=== PATIENT | male | born 1930 | race Two or more races ===

== ENCOUNTER 2016-10-25 22:19 | Emergency (ER) | payer MEDICARE ==
[~2016-10-25] VITALS: Ht 175.3 cm; Wt 84.0 kg
[2016-10-26] MEDS ORDERED: MORPHINE SULFATE 4 MG/ML CPJ (NOT FOR IM USE) IV STA (00:08)
[2016-10-26] MEDS ORDERED: ONDANSETRON HCL 4MG/2ML VIAL IV STA (00:08)
[2016-10-26 00:47] LABS: BASOPHILS % 0.1 % (0.0-2.0); HEMATOCRIT. 38.5 % (42.0-52.0); HEMOGLOBIN. 13.2 g/dL (14.0-18.0); LYMPHOCYTES % 8.6 % (20.0-50.0); MEAN CORPUSCULAR HEMOGLOBIN 32.5 pg (28.0-32.0); MEAN CORPUSCULAR VOLUME 94.6 fL (80.0-94.0); MEAN PLATELET VOLUME 7.3 fl (7.4-10.4); MONOCYTES % 7.8 % (2.0-8.0); NEUTROPHILS % 83.5 % (40.0-76.0); PLATELET 211 x1000/uL (130-400); RED BLOOD CELL COUNT 4.06 mill/uL (4.7-6.1); RED CELL DISTRIBUTION WIDTH 13.6 % (11.6-14.6)
[2016-10-26 00:56] LABS: PARTIAL THROMBOPLASTIN TIME 29.1 sec (24.0-34.0); PROTHROMBIN TIME 10.3 sec
[2016-10-26 01:10] LABS: CARBON DIOXIDE 24 mEq/L (21-32); CHLORIDE 104 mEq/L (98-107); CREATINE KINASE 194 IU/L (39-308); TROPONIN I < 0.02 ng/mL (0.00-0.04)
[2016-10-26 01:13] LABS: CLARITY URINE CLEAR (CLEAR); COLOR URINE YELLOW (YELLOW); GLUCOSE URINE NEGATIVE (NEGATIVE); KETONES URINE NEGATIVE (NEGATIVE); LEUKOCYTE ESTERASE URINE NEGATIVE (NEGATIVE); NITRITE URINE NEGATIVE (NEGATIVE); OCCULT BLOOD URINE TRACE (NEGATIVE); PROTEIN URINE TRACE (NEGATIVE); SPECIFIC GRAVITY URINE 1.008 (1.005-1.030); UROBILINOGEN URINE 0.2 E.U./dL (0.2-1.0)
[2016-10-26 03:40] VITALS: BP 155/66
== END 2016-10-26 03:47 | disposition home or self-care (01) ==
LOC: ER 22:43
DX: R55 Syncope and collapse (principal); M54.2 Cervicalgia; I10 Essential (primary) hypertension
CPT/HCPCS: 36415; 70450; 71010; 72125; 73030; 80053; 81001; 82550; 84484; 85025; 85610; 85730; 86850; 86900; 86901; 93005; 96374; 96375; 99291; J2270; J2405

== ENCOUNTER 2018-03-26 19:15 | Inpatient (IN) | payer MEDICARE ==
[~2018-03-26] VITALS: Ht 177.8 cm; Wt 70.8 kg
[2018-03-26 20:53] LABS: HEMATOCRIT. 28.1 % (42.0-52.0); HEMOGLOBIN. 9.3 g/dL (14.0-18.0); MEAN CORPUSCULAR HEMOGLOBIN 27.5 pg (28.0-32.0); MEAN CORPUSCULAR VOLUME 82.9 fL (80.0-94.0); MEAN PLATELET VOLUME 6.8 fl (7.4-10.4); PLATELET 247 x1000/uL (130-400); RED CELL DISTRIBUTION WIDTH 15.2 % (11.6-14.6)
[2018-03-26 21:05] LABS: CHLORIDE 107 mEq/L (98-107)
[2018-03-26 21:19] LABS: PLATELET ESTIMATE NORMAL
[2018-03-26 22:30] VITALS: BP 144/56
[2018-03-26] MEDS ORDERED: ACETAMINOPHEN 325MG TABLET PO PRN (23:15)
[2018-03-27 04:00] VITALS: BP 113/47
[2018-03-27 07:27] LABS: BASOPHILS % 0.1 % (0.0-2.0); HEMATOCRIT. 24.9 % (42.0-52.0); HEMOGLOBIN. 8.3 g/dL (14.0-18.0); LYMPHOCYTES % 14.5 % (20.0-50.0); MEAN CORPUSCULAR HEMOGLOBIN 27.6 pg (28.0-32.0); MEAN CORPUSCULAR VOLUME 82.8 fL (80.0-94.0); MEAN PLATELET VOLUME 7.2 fl (7.4-10.4); MONOCYTES % 14.4 % (2.0-8.0); PLATELET 222 x1000/uL (130-400); RED BLOOD CELL COUNT 3.01 mill/uL (4.7-6.1); RED CELL DISTRIBUTION WIDTH 15.2 % (11.6-14.6)
[2018-03-27 08:00] VITALS: BP 138/55
[2018-03-27 08:01] LABS: CHLORIDE 109 mEq/L (98-107)
[2018-03-27] MEDS: ENOXAPARIN 40MG/0.4ML SYR SUBCUT SCH (08:12)
[2018-03-27 08:14] LABS: CREATINE KINASE 187 IU/L (39-308); CREATINE KINASE MB FRACTION 1.2 ng/mL (0.5-3.6)
[2018-03-27 10:00] VITALS: BP 129/75
[2018-03-27 12:00] VITALS: BP 128/70
[2018-03-27] MEDS ORDERED: LEVOFLOXACIN 500MG TABLET PO ONE (12:30)
[2018-03-27] MEDS: POTASSIUM CHLORIDE 10MEQ TABLET SR PO SCH (12:39)
[2018-03-27] MEDS: ASPIRIN 81MG TABLET PO SCH (12:39)
[2018-03-27] MEDS: FUROSEMIDE 40MG/4ML VIAL IVP SCH (12:39)
[2018-03-27] MEDS: LEVOFLOXACIN 500MG TABLET PO SCH (12:41)
[2018-03-27 15:57] LABS: CREATINE KINASE MB FRACTION 1.6 ng/mL (0.5-3.6)
[2018-03-27 16:00] VITALS: BP 116/77
[2018-03-27] MEDS: TAMSULOSIN HCL 0.4MG SR CAPSULE PO SCH (18:03)
[2018-03-27] MEDS ORDERED: FURO-152 MT (18:24)
[2018-03-27] MEDS ORDERED: SIMV20TA6 MT (18:24)
[2018-03-27] MEDS ORDERED: ATEN-42 MT (18:24)
[2018-03-27] MEDS ORDERED: AMLO10TA80 MT (18:24)
[2018-03-27] MEDS ORDERED: LOSA100T14 MT (18:24)
[2018-03-27] MEDS ORDERED: POTA20TA82 MT (18:24)
[2018-03-27] MEDS ORDERED: CLOP75TA33 MT (18:24)
[2018-03-27] MEDS ORDERED: FINA5TAB11 MT (18:24)
[2018-03-27] MEDS ORDERED: GLIM1TAB2 MT (18:24)
[2018-03-27] MEDS ORDERED: METF500T MT (18:24)
[2018-03-27 20:00] VITALS: BP_SYST 131; BP_SYST 136; BP_SYST 141; BP_DIAS 48; BP_DIAS 75; BP_DIAS 81
[2018-03-27] MEDS: ALBUTEROL (0.083%) 2.5MG/3ML NEB HHN SCH (20:09)
[2018-03-28] VITALS: BP 127/55
[2018-03-28] MEDS: ALBUTEROL (0.083%) 2.5MG/3ML NEB HHN SCH ×2 (01:30→08:51)
[2018-03-28 04:00] VITALS: BP 131/43
[2018-03-28 06:50] LABS: BASOPHILS % 0.3 % (0.0-2.0); HEMATOCRIT. 26.6 % (42.0-52.0); HEMOGLOBIN. 8.7 g/dL (14.0-18.0); LYMPHOCYTES % 15.1 % (20.0-50.0); MEAN CORPUSCULAR HEMOGLOBIN 27.4 pg (28.0-32.0); MEAN CORPUSCULAR VOLUME 83.4 fL (80.0-94.0); MEAN PLATELET VOLUME 7.1 fl (7.4-10.4); MONOCYTES % 14.7 % (2.0-8.0); NEUTROPHILS % 69.9 % (40.0-76.0); PLATELET 225 x1000/uL (130-400); RED BLOOD CELL COUNT 3.19 mill/uL (4.7-6.1); RED CELL DISTRIBUTION WIDTH 15.4 % (11.6-14.6)
[2018-03-28 07:05] LABS: CHLORIDE 108 mEq/L (98-107)
[2018-03-28 07:16] LABS: HDL CHOLESTEROL 51 mg/dL (40-59); LDL CHOLESTEROL 51 mg/dL (5-100)
[2018-03-28 08:00] VITALS: BP_SYST 107; BP_SYST 120; BP_SYST 135; BP_DIAS 36; BP_DIAS 43; BP_DIAS 79
[2018-03-28] MEDS: ASPIRIN 81MG TABLET PO SCH (09:46)
[2018-03-28] MEDS: POTASSIUM CHLORIDE 10MEQ TABLET SR PO SCH (09:46)
[2018-03-28] MEDS: FUROSEMIDE 40MG/4ML VIAL IVP SCH (09:46)
[2018-03-28] MEDS: ENOXAPARIN 40MG/0.4ML SYR SUBCUT SCH (09:47)
[2018-03-28] MEDS: TAMSULOSIN HCL 0.4MG SR CAPSULE PO SCH (09:47)
[2018-03-28] MEDS: LEVOFLOXACIN 500MG TABLET PO SCH (11:51)
[2018-03-28 12:00] VITALS: BP 104/53
[2018-03-28 15:33] VITALS: BP 127/59
[2018-03-28 15:39] VITALS: BP 127/59
== END 2018-03-28 17:25 | disposition home or self-care (01) | DRG 293 ==
LOC: ER 19:15 → 8WST 20:23 → EDBEDREQTM 20:26 → EDBEDREQ 20:26 → EDBEDREQTM 20:44 → ENRESERV 20:50
PROVIDERS: ADMIT Internal Medicine; ATTEND Internal Medicine
DX: I11.0 Hypertensive heart disease with heart failure (principal); I25.10 Atherosclerotic heart disease of native coronary artery without angina pectoris; I50.9 Heart failure, unspecified; J06.9 Acute upper respiratory infection, unspecified; D64.9 Anemia, unspecified; N40.0 Benign prostatic hyperplasia without lower urinary tract symptoms; W19.XXXA Unspecified fall, initial encounter; Y93.89 Activity, other specified; Y92.89 Other specified places as the place of occurrence of the external cause; Y99.8 Other external cause status; I25.2 Old myocardial infarction; Z86.73 Personal history of transient ischemic attack (TIA), and cerebral infarction without residual deficits; Z95.5 Presence of coronary angioplasty implant and graft
CPT/HCPCS: 36415; 71045; 80048; 80061; 82550; 82553; 83605; 83880; 84443; 84484; 93005; 93306; 99285; J1650; J1940; J7611

== ENCOUNTER 2018-09-23 13:18 | Emergency (ER) | payer MEDICARE ==
[~2018-09-23] VITALS: Ht 177.8 cm; Wt 82.0 kg
[~2018-09-23 13:18] MED LIST: AMLO10TA80 MT; ATEN-42 MT; CLOP75TA33 MT; FINA5TAB11 MT; FURO-152 MT; GLIM1TAB2 MT; LOSA100T14 MT; METF500T MT; POTA20TA82 MT
[2018-09-23] MEDS ORDERED: ATOR20TA65 PO (13:35)
[2018-09-23] MEDS ORDERED: PANT40TA4 PO (13:35)
[2018-09-23] MEDS ORDERED: DIPHENHYDRAMINE 25MG CAPSULE PO ONE (14:15)
[2018-09-23] MEDS ORDERED: PREDNISONE 20MG TABLET PO ONE (14:15)
[2018-09-23] MEDS ORDERED: FAMOTIDINE 20MG TABLET PO ONE (14:15)
[2018-09-23 14:55] VITALS: BP 143/66
== END 2018-09-23 14:58 | disposition home or self-care (01) ==
LOC: ER 13:18
DX: T78.49XA Other allergy, initial encounter (principal); X58.XXXA Exposure to other specified factors, initial encounter; I25.10 Atherosclerotic heart disease of native coronary artery without angina pectoris; I25.2 Old myocardial infarction; Z86.73 Personal history of transient ischemic attack (TIA), and cerebral infarction without residual deficits; Z98.890 Other specified postprocedural states; Z79.899 Other long term (current) drug therapy
CPT/HCPCS: 99284; J7512; Q0163